=== PATIENT | male | born 1995 | race Two or more races ===

== ENCOUNTER 2025-07-08 17:58 | Emergency (ER) | payer MEDICAID, SELFPAY ==
[2025-07-08 18:09] VITALS: BP 112/75; PULSE 128; RESP 18; TEMP 37.6; O2SAT 96; BMI 27.7
--- NOTE | 2025-07-08 18:11 | EKG_ITS ---
[facility] Test Date: 2025-07-08 Pat Name: DOM WELCH Department: Room: - Gender: Male Procedures Tech: : 1995 Requested By: ED Temporary Provider Order Number: [id number] Reading MD: ED Temporary Provider Measurements Intervals [place] Rate: 127 P: 59 [place]: 112 QRS: 50 QRSD: 89 T: 46 QT: 307 QTc: 447 Interpretive Statements SINUS TACHYCARDIA WITH SHORT [place] INTERVAL ABNORMAL RHYTHM ECG No previous ECG available for comparison /[id number]/[email or web address]/[id number]
--- NOTE | 2025-07-08 18:41 | EDNOTE_ITS ---
ED Arrhythmia Palp. RME/HPI General Chief Complaint: Arrhythmia/Palpitations Stated Complaint: FAST HR Time Seen by Provider: 07/08/25 18:38 Arrival date/time: 07/08/25 17:58 29M with no significant PMH presents to ED with PD (cleared to leave after) while patient was in retirement for fast HR. Patient was no complaints and just needs a ride home. He doesn't know why he's here. Limitations: no limitations Related Data Previous Rx's ?Medication ?Instructions ?Recorded cyclobenzaprine 10 mg tablet 10 mg PO BID PRN pain #10 tabs 07/28/18 ibuprofen 600 mg tablet 600 mg PO TID PRN pain #14 t abs 07/28/18 Allergies Allergy/AdvReac Type Severity Reaction Status Date / Time No Known Allergies Allergy Verified 07/08/25 18:00 Review of Systems Review of Systems Systems Reviewed: All systems reviewed, normal except as documented Constitutional Constitutional: Reports system reviewed and no additional complaints, except as documented, Denies fever(s) and Denies headache(s) ENT Ears, Nose, Mouth, and Throat: Denies disequilibrium and Denies headache(s) Cardiovascular Cardiovascular: Reports system reviewed and no additional complaints, except as documented, Denies chest pain and Denies dyspnea Respiratory Respiratory: Reports system reviewed and no additional complaints, except as documented, Denies cough and Denies dyspnea Gastrointestinal Gastrointestinal: Reports system reviewed and no additional complaints, except as documented, Denies abdominal pain, Denies nausea and Denies vomiting Neurologic Neurologic: Reports system reviewed and no additional complaints, except as documented, Denies confusion, Denies disequilibrium and Denies headache(s) Psychiatric Psychiatric: Denies confusion Past Medical History Past Medical History CARDIAC: Negative Congestive Heart Failure RESPIRATORY: Negative Chronic Obstructive Pulmonary Disease (COPD) GENITOURINARY: Negative Renal Disease MUSCULOSKELETAL: Positive Musculoskeletal Disorders ENDOCRINE: Negative Diabetes Mellitus Type 1 or Diabetes Mellitus Type 2 Social History SMOKING STATUS: Current every day smoker ED Exam General Limitations: Present no limitations General appearance: Present alert and in no apparent distress Head Head exam: Present atraumatic Eye Eye exam: Present normal appearance, PERRL and EOMI ENT ENT exam: Present normal exam, normal oropharynx and mucous membranes moist Neck Neck exam: Present normal inspection, full ROM and trachea midline Chest Chest inspection: Present normal inspection and symmetric chest wall rise Respiratory Respiratory exam: Present normal lung sounds bilaterally Cardiovascular Cardiovascular exam: Present regular rate, normal rhythm and normal heart sounds Abdominal Exam Abdominal exam: Present soft and normal bowel sounds Extremities Exam Extremities exam: Present normal inspection and full ROM Back Exam Back exam: Present normal inspection and full ROM Neurological Exam Neurological exam: Present alert, oriented X3 and CN II-XII intact Psychiatric Psychiatric exam: Present normal affect and normal mood Skin Skin exam: Present warm, dry, intact and normal color Course Quality Measures none Orders Category Date Time Status EKG (ED ONLY) *Do not use* NOW Care 07/08/25 18:11 Completed EKG (ED Only) Stat Exams 07/08/25 18:11 Draft Vital Signs Vital signs: Vital Signs Temperature 99.7 F 07/08/25 18:09 Pulse Rate 128 H 07/08/25 18:09 Respiratory Rate 18 07/08/25 18:09 Blood Pressure 112/75 07/08/25 18:09 Pulse Oximetry (%) 96 07/08/25 18:09 Oxygen Delivery Method Room Air 07/08/25 18:09 Arrhythmia/Palpitations MDM Narrative MDM Narrative:: 29M with no significant PMH presents to ED with PD (cleared to leave after) while patient was in retirement for fast HR. Patient was no complaints and just needs a ride home. He doesn't know why he's here. Physical exam reveals normal WOB. Clear lungs. Patient is afebrile, calm, and alert. He smells like marijuana. EKG is sinus tach of 127. [employer] given. Patient data External records reviewed:: [facility] previous records Clinical information provided by:: patient Social determinants that could affect healthcare access:: substance use Patient has the following chronic illnesses:: marijuana use How is presenting disease/condition affected by chronic disease/condition?: exacerbated by Evaluation data The following diagnostics were reviewed and interpreted by me:: EKG tracing(s) Lab and/or radiology exams considered but not ordered:: ordered Interpretation Summary: above Medications / Prescriptions Medications or Prescriptions considered but not ordered:: not ordered Medication administrations:: n/a Consultations Consultation(s) initiated? (list below): No Diagnosis Differential diagnosis arrhythmia/palpitations: palpitations, anxiety, sinus tachycardia, artial fibrillation, artial flutter, ventricular premature beats, supraventricular tachycardia, ventricular tachycardia and WPW Most likely diagnosis given after review of the tests above:: sinus tach Admission Indicated Admission indicated?: not indicated Admission Request Was there a request for admission?: No Disposition Plan Disposition Plan: Discharge Discharge Attestation Discharge Attestation: The patient and all family members were given an opportunity to ask questions and understood the discharge instructions. Discharge instructions specifically effects, indications for sooner follow up or return to the emergency department, and the expected course of current diagnosis. Patient condition: Stable Discharge Plan Plan Patient Disposition: HOME (Self Care) Discharge Disposition comment: Stable Prescriptions/Referrals Prescriptions/Med Rec: No Action cyclobenzaprine 10 mg tablet 10 mg PO BID PRN (Reason: pain) Qty: 10 0RF ibuprofen 600 mg tablet 600 mg PO TID PRN (Reason: pain) Qty: 14 0RF Problem List Clinical Impression: Sinus tachycardia Patient/Caregiver Discharge Instructions Education Materials: Your Heart's Electrical System Additional Instructions: Please follow-up with PCP within 24-48 hours and return immediately if symptoms worsen. Print Language: Amharic Stand Alone Forms: Patient Portal Info Letter DODIE/SHANNAN Supervising Physician GLORIA Supervising Physician: Dr. Tony
--- NOTE | 2025-07-08 19:00 | PC.CC ---
Shahla DAVID was consulted by CHAVA Carrington for transportation for the patient back home. Patient reports he does nto have anyone local that can pick him up and his parents are elderly and cannot pick him up. JOANN explained to patient this is a one time courtesy.
== END 2025-07-08 20:24 | disposition home or self-care (01) ==
LOC: SERX 19:02
PROVIDERS: Emergency Provider Emergency Medicine
DX: R00.0 Tachycardia, unspecified (principal); R00.2 Palpitations
CPT/HCPCS: 93005; 99283